=== PATIENT | female | born 1960 ===

== ENCOUNTER 2018-02-23 13:17 | Observation (INO) | payer OTHER ==
[2018-02-23 13:17] VITALS: BMI 40.0
--- NOTE | 2018-02-23 14:36 | ED PDOC ---
HPI: Chest Pain Time Seen by Provider: 02/23/18 14:32 Chief Complaint (Nursing): Chest Pain Chief Complaint (Provider): CP History Per: Patient (57 Y/O FEMALE H/O CARDIAC STENT 08/2013 HERE WITH CHEST HEAVINESS NOTED WITH WALKING ON [address] AT 11:30PM. DENIES ANY COUGH/ FEVER/CHILL. HAS HAD STRESS TEST 07/2017 UNSURE OF RESULTS) Past Medical History Reviewed: Historical Data, Nursing Documentation, Vital Signs Vital Signs: Last Vital Signs Temp 98.4 F 02/23/18 13:33 Pulse 78 02/23/18 13:33 Resp 18 02/23/18 13:33 BP 137/64 02/23/18 13:33 Pulse Ox 99 02/23/18 17:02 - Medical History PMH: Diabetes, HTN, Hypercholesterolemia Denies: Chronic Kidney Disease - Surgical History Surgical History: CABG, Coronary Stent (2012), Endoscopy - Family History Family History: States: No Known Family Hx - Home Medications Home Medications: Ambulatory Orders Medication Instructions Recorded Carvedilol [Coreg] 6.25 mg PO BID 06/26/15 Isosorbide Dinitrate 60 mg PO DAILY 06/26/15 Vitamin B Complex [Optimum Vitamin 1 tab PO DAILY 06/26/15 B-Complex] Ezetimibe/Simvastatin [Vytorin 10 1 tab PO DAILY 04/12/16 mg-40 mg] Glimepiride [Amaryl] 4 mg PO BID 04/12/16 amLODIPine [Norvasc] 5 mg PO DAILY 04/12/16 Losartan [Cozaar] 100 mg PO DAILY 08/22/17 Metformin HCl [Fortamet] 1,000 mg PO DAILY 08/22/17 SITagliptin [Januvia] 50 mg PO DAILY 08/22/17 - Allergies Allergies/Adverse Reactions: Allergies Allergy/AdvReac Type Severity Reaction Status Date / Time aspirin Allergy ITCHING Verified 02/23/18 13:33 atorvastatin [From Lipitor] Allergy REDNESS Verified 02/23/18 13:33 fenofibrate Allergy PEELING Verified 02/23/18 13:33 SKIN FISH Allergy RASH Verified 02/23/18 13:33 latex Allergy RASH Verified 02/23/18 13:33 omega-3 acid ethyl esters Allergy REDNESS Verified 02/23/18 13:33 [From Lovaza] Penicillins Allergy RASH Verified 02/23/18 13:33 Sulfa (Sulfonamide Allergy RASH Verified 02/23/18 13:33 Antibiotics) sulindac [From Clinoril] Allergy RASH Verified 02/23/18 13:33 Thiazides Allergy RASH Verified 02/23/18 13:33 penicillin Allergy ITCHING Uncoded 07/20/17 09:47 Review of Systems ROS Statement: Except As Marked, All Systems Reviewed And Found Negative Cardiovascular: Positive for: Chest Pain Physical Exam - Reviewed Nursing Documentation Reviewed: Yes Vital Signs Reviewed: Yes - Physical Exam Appears: Positive for: Well, Non-toxic, No Acute Distress Head Exam: Positive for: ATRAUMATIC, NORMAL INSPECTION, NORMOCEPHALIC Skin: Positive for: Normal Color, Warm, DRY Eye Exam: Positive for: EOMI, Normal appearance, PERRL ENT: Positive for: Normal ENT Inspection Neck: Positive for: Normal, Painless ROM Cardiovascular/Chest: Positive for: Regular Rate, Rhythm Respiratory: Positive for: CNT, Normal Breath Sounds Gastrointestinal/Abdominal: Positive for: Normal Exam, Soft Back: Positive for: Normal Inspection Extremity: Positive for: Normal ROM Neurologic/Psych: Positive for: Alert, Oriented - Laboratory Results Result Diagrams: 02/23/18 14:47 02/23/18 14:47 - ECG ECG Rhythm: Positive for: Sinus Rhythm (NSR 82 BPM; NO ECTOPY; NO ACUTE CHANGES) O2 Sat by Pulse Oximetry: 99 - Progress ED Course And Treament: PATIENT IS ALLERGIC TO ASA (RASH) NITRO SLG X 1 DOSE FOR 3/10 CHEST HEAVINESS. PATIENT CHEST PAIN FREE UPON RE-EVALUATION D/W DR. LEO D/W DR. BOUCHER WHO RECOMMENDS TELE OBSERVATION 23HOURS Disposition - Clinical Impression Clinical Impression: Chest pain - Patient ED Disposition Is Patient to be Admitted: Yes - Disposition Disposition Time: 17:02 Condition: FAIR Forms: [facility] (Gambian) - Pt Status Changed To: Hospital Disposition Of: Observation
--- NOTE | 2018-02-23 14:43 | RAD ---
HISTORY: CP COMPARISON: Comparison made with chest radiograph 07/20/2017 FINDINGS: LUNGS: No active pulmonary disease. PLEURA: No significant pleural effusion identified, no pneumothorax apparent. CARDIOVASCULAR: Normal. OSSEOUS STRUCTURES: Mild multilevel degenerative spondylosis of the thoracic spine. VISUALIZED UPPER ABDOMEN: Normal. OTHER FINDINGS: None. IMPRESSION: No active disease.
[2018-02-23 14:58] LABS: BASO # 0.1 K/uL (0.0-0.2); BASO % 0.8 % (0.0-2.0); EOS # 0.2 K/uL (0.0-0.7); HEMOGLOBIN 12.9 g/dL (12.0-16.0); LYMPH # 1.7 K/uL (1.0-4.3); LYMPH % 13.7 % (20.0-40.0); MEAN CELL VOLUME 90.7 fl (81.0-99.0); MEAN CORPUSCULAR HEMOGLOBIN 30.6 pg (27.0-31.0); MEAN CORPUSCULAR HGB CONC 33.7 g/dL (33.0-37.0); MEAN PLATELET VOLUME 7.9 fl (7.2-11.7); MONO # 0.9 K/uL (0.0-0.8); MONO % 7.7 % (0.0-10.0); NEUT # 9.2 K/uL (1.8-7.0); NEUT % 75.8 % (50.0-75.0); RBC 4.21 Mil/uL (3.80-5.20)
[2018-02-23 15:01] LABS: WHITE BLOOD COUNT 12.1 K/uL (4.8-10.8)
[2018-02-23 15:16] LABS: CALCIUM 9.3 mg/dL (8.4-10.2); GFR AFRICAN-AMERICAN > 60; GFR NON-AFRICAN AMERICAN > 60
[2018-02-23 15:25] LABS: BLOOD UREA NITROGEN 15 mg/dl (7-17)
[2018-02-24] MEDS ORDERED: SIMVASTATIN PO SCH (09:00)
[2018-02-24] MEDS ORDERED: Metoprolol Succinate 25 mg XL Tab PO SCH (09:00)
[2018-02-24] MEDS ORDERED: Patient's Own Med (Sitagliptin Phos/Metformin Hcl [Janumet 50-1,000 Mg Tablet] 1 TAB) PO SCH (09:00)
[2018-02-24] MEDS ORDERED: EZETIMIBE PO SCH (09:00)
--- NOTE | 2018-02-24 13:50 | CP.PCM.CON ---
History of Present Illness - History of Present Illness History of Present Illness: Consultation for evaluation of chest pain hx of CAD HPI: 57 year old female who has been followed by me x 5 years , hx of CAD s/p PTCA/ NEGRO of LCx in 2012 admitted with c/o chest pain and pressure like sensation. Review of Systems - Review of Systems Systems not reviewed;Unavailable: Acuity of Condition - Constitutional Constitutional: As Per HPI - EENT Eyes: As Per HPI Ears: As Per HPI Nose/Mouth/Throat: As Per HPI - Breasts Breasts: As Per HPI - Cardiovascular Cardiovascular: As Per HPI - Respiratory Respiratory: As Per HPI - Gastrointestinal Gastrointestinal: As Per HPI - Genitourinary Genitourinary: As Per HPI - Reproductive: Female Reproductive:Female: As Per HPI - Menstruation Menstruation: As Per HPI - Musculoskeletal Musculoskeletal: As Per HPI - Integumentary Integumentary: As Per HPI - Neurological Neurological: As Per HPI - Psychiatric Psychiatric: As Per HPI - Endocrine Endocrine: As Per HPI - Hematologic/Lymphatic Hematologic: As Per HPI Past Patient History - Past Medical History & Family History Past Medical History?: Yes - Past Social History Smoking Status: Never Smoked - CARDIAC Hx Cardiac Disorders: Yes Hx Heart Attack: Yes Hx Hypercholesterolemia: Yes Hx Hypertension: Yes Other/Comment: Cardiac stent -2012 - PULMONARY Hx Respiratory Disorders: No - NEUROLOGICAL Hx Neurological Disorder: No - HEENT Hx HEENT Problems: No - RENAL Hx Chronic Kidney Disease: No - ENDOCRINE/METABOLIC Hx Endocrine Disorders: Yes Hx Diabetes Mellitus Type 2: Yes - HEMATOLOGICAL/ONCOLOGICAL Hx Blood Disorders: No - INTEGUMENTARY Hx Dermatological Problems: No - MUSCULOSKELETAL/RHEUMATOLOGICAL Hx Musculoskeletal Disorders: Yes Hx Falls: No Hx Herniated Disk: Yes - GASTROINTESTINAL Hx Gastrointestinal Disorders: Yes Other/Comment: hiatal hernia - GENITOURINARY/GYNECOLOGICAL Hx Genitourinary Disorders: No - PSYCHIATRIC Hx Psychophysiologic Disorder: No Hx Substance Use: No - SURGICAL HISTORY Hx Surgeries: Yes Hx Coronary Stent: Yes (2012) Other/Comment: Endoscopy - ANESTHESIA Hx Anesthesia: Yes Hx Anesthesia Reactions: No Hx Malignant Hyperthermia: No Meds Allergies/Adverse Reactions: Allergies Allergy/AdvReac Type Severity Reaction Status Date / Time aspirin Allergy ITCHING Verified 02/23/18 13:33 atorvastatin [From Lipitor] Allergy REDNESS Verified 02/23/18 13:33 fenofibrate Allergy PEELING Verified 02/23/18 13:33 SKIN FISH Allergy RASH Verified 02/23/18 13:33 latex Allergy RASH Verified 02/23/18 13:33 omega-3 acid ethyl esters Allergy REDNESS Verified 02/23/18 13:33 [From Lovaza] Penicillins Allergy RASH Verified 02/23/18 13:33 Sulfa (Sulfonamide Allergy RASH Verified 02/23/18 13:33 Antibiotics) sulindac [From Clinoril] Allergy RASH Verified 02/23/18 13:33 Thiazides Allergy RASH Verified 02/23/18 13:33 penicillin Allergy ITCHING Uncoded 07/20/17 09:47 - Medications Medications: Current Medications Amlodipine Besylate (Norvasc) 5 mg PO DAILY [facility] Last Admin: 02/24/18 09:02 Dose: 5 mg Carvedilol (Coreg) 6.25 mg PO BID [facility] Last Admin: 02/24/18 09:01 Dose: 6.25 mg Clopidogrel Bisulfate (Plavix) 75 mg PO DAILY [facility] Last Admin: 02/24/18 09:02 Dose: 75 mg Home Med (Ezetimibe/Simvastatin [Vytorin 10-40 Mg Tablet]) 1 tab PO DAILY [facility] Isosorbide Mononitrate (Imdur) 60 mg PO DAILY [facility] Last Admin: 02/24/18 09:01 Dose: 60 mg Losartan Potassium (Cozaar) 100 mg PO DAILY [facility] Metformin HCl (Glucophage) 1,000 mg PO BID [facility] Last Admin: 02/24/18 09:02 Dose: 1,000 mg Metoprolol Succinate (Toprol Xl) 25 mg PO DAILY [facility] Last Admin: 02/24/18 09:05 Dose: Not Given Sitagliptin Phosphate (Januvia) 50 mg PO BID [facility] Last Admin: 02/24/18 09:02 Dose: 50 mg Physical Exam - Constitutional Appears: Well - Head Exam Head Exam: ATRAUMATIC, NORMAL INSPECTION, NORMOCEPHALIC - Eye Exam Eye Exam: EOMI, Normal appearance, PERRL Pupil Exam: NORMAL ACCOMODATION, PERRL - ENT Exam ENT Exam: Mucous Membranes Moist, Normal Exam - Neck Exam Neck exam: Positive for: Normal Inspection - Respiratory Exam Respiratory Exam: Clear to Auscultation Bilateral, NORMAL BREATHING PATTERN - Cardiovascular Exam Cardiovascular Exam: REGULAR RHYTHM, RRR, +S1, +S2, Systolic Murmur - GI/Abdominal Exam GI & Abdominal Exam: Normal Bowel Sounds, Soft. absent: Tenderness - Extremities Exam Extremities exam: Positive for: normal inspection - Back Exam Back exam: NORMAL INSPECTION - Neurological Exam Neurological exam: Alert, CN II-XII Intact, Normal Gait, Oriented x3, Reflexes Normal - Psychiatric Exam Psychiatric exam: Normal Affect, Normal Mood - Skin Skin Exam: Dry, Intact, Normal Color, Warm Results - Vital Signs Recent Vital Signs: Last Vital Signs Temp 98.5 F 02/24/18 12:00 Pulse 75 02/24/18 12:00 Resp 20 02/24/18 12:00 BP 125/75 02/24/18 12:00 Pulse Ox 97 02/24/18 12:00 - Labs Result Diagrams: 02/23/18 14:47 02/23/18 14:47 Labs: Laboratory Results - last 24 hr 02/23/18 02/23/18 02/23/18 14:47 14:47 21:14 WBC 12.1 H D RBC 4.21 Hgb 12.9 Hct 38.2 MCV 90.7 MCH 30.6 MCHC 33.7 RDW 13.0 Plt Count 230 MPV 7.9 Neut % (Auto) 75.8 H Lymph % (Auto) 13.7 L [place] % (Auto) 7.7 Eos % (Auto) 2.0 Baso % (Auto) 0.8 Neut # (Auto) 9.2 H Lymph # (Auto) 1.7 [place] # (Auto) 0.9 H Eos # (Auto) 0.2 Baso # (Auto) 0.1 Sodium 137 Potassium 4.1 Chloride 100 Carbon Dioxide 26 Anion Gap 15 BUN 15 Creatinine 0.6 L Est GFR ( Amer) > 60 Est GFR (Non-Af Amer) > 60 POC Glucose (mg/dL) Random Glucose 189 H Calcium 9.3 Magnesium 2.0 Troponin I < 0.0120 < 0.0120 02/23/18 02/24/18 02/24/18 21:39 05:07 06:00 WBC RBC Hgb Hct MCV MCH MCHC RDW Plt Count MPV Neut % (Auto) Lymph % (Auto) [place] % (Auto) Eos % (Auto) Baso % (Auto) Neut # (Auto) Lymph # (Auto) [place] # (Auto) Eos # (Auto) Baso # (Auto) Sodium Potassium Chloride Carbon Dioxide Anion Gap BUN Creatinine Est GFR ( Amer) Est GFR (Non-Af Amer) POC Glucose (mg/dL) 84 81 Random Glucose Calcium Magnesium Troponin I < 0.0120 02/24/18 11:51 WBC RBC Hgb Hct MCV MCH MCHC RDW Plt Count MPV Neut % (Auto) Lymph % (Auto) [place] % (Auto) Eos % (Auto) Baso % (Auto) Neut # (Auto) Lymph # (Auto) [place] # (Auto) Eos # (Auto) Baso # (Auto) Sodium Potassium Chloride Carbon Dioxide Anion Gap BUN Creatinine Est GFR ( Amer) Est GFR (Non-Af Amer) POC Glucose (mg/dL) 119 H Random Glucose Calcium Magnesium Troponin I Assessment & Plan (1) Unstable angina Assessment and Plan: plan for stress test on monday Status: Acute (2) CAD (coronary artery disease) Status: Acute (3) S/P PTCA (percutaneous transluminal coronary angioplasty) Status: Acute (4) HTN (hypertension) Status: Acute (5) Dyslipidemia Status: Acute (6) Chest pain Status: Acute
[2018-02-24 16:18] VITALS: BP 126/73; PULSE 68; RESP 17; TEMP 98.3; O2SAT 99
--- NOTE | 2018-02-24 16:38 | CP.PCM.HP ---
History of Present Illness - History of Present Illness History of Present Illness: This is a 57 y/o female admitted for chest pain. Past Patient History - Past Medical History & Family History Past Medical History?: Yes - Past Social History Smoking Status: Never Smoked - CARDIAC Hx Cardiac Disorders: Yes Hx Heart Attack: Yes Hx Hypercholesterolemia: Yes Hx Hypertension: Yes Other/Comment: Cardiac stent -2012 - PULMONARY Hx Respiratory Disorders: No - NEUROLOGICAL Hx Neurological Disorder: No - HEENT Hx HEENT Problems: No - RENAL Hx Chronic Kidney Disease: No - ENDOCRINE/METABOLIC Hx Endocrine Disorders: Yes Hx Diabetes Mellitus Type 2: Yes - HEMATOLOGICAL/ONCOLOGICAL Hx Blood Disorders: No - INTEGUMENTARY Hx Dermatological Problems: No - MUSCULOSKELETAL/RHEUMATOLOGICAL Hx Musculoskeletal Disorders: Yes Hx Falls: No Hx Herniated Disk: Yes - GASTROINTESTINAL Hx Gastrointestinal Disorders: Yes Other/Comment: hiatal hernia - GENITOURINARY/GYNECOLOGICAL Hx Genitourinary Disorders: No - PSYCHIATRIC Hx Psychophysiologic Disorder: No Hx Substance Use: No - SURGICAL HISTORY Hx Surgeries: Yes Hx Coronary Stent: Yes (2012) Other/Comment: Endoscopy - ANESTHESIA Hx Anesthesia: Yes Hx Anesthesia Reactions: No Hx Malignant Hyperthermia: No Meds Allergies/Adverse Reactions: Allergies Allergy/AdvReac Type Severity Reaction Status Date / Time aspirin Allergy ITCHING Verified 02/23/18 13:33 atorvastatin [From Lipitor] Allergy REDNESS Verified 02/23/18 13:33 fenofibrate Allergy PEELING Verified 02/23/18 13:33 SKIN FISH Allergy RASH Verified 02/23/18 13:33 latex Allergy RASH Verified 02/23/18 13:33 omega-3 acid ethyl esters Allergy REDNESS Verified 02/23/18 13:33 [From Lovaza] Penicillins Allergy RASH Verified 02/23/18 13:33 Sulfa (Sulfonamide Allergy RASH Verified 02/23/18 13:33 Antibiotics) sulindac [From Clinoril] Allergy RASH Verified 02/23/18 13:33 Thiazides Allergy RASH Verified 02/23/18 13:33 penicillin Allergy ITCHING Uncoded 07/20/17 09:47 Results - Vital Signs Recent Vital Signs: Last Vital Signs Temp 98.3 F 02/24/18 16:17 Pulse 68 02/24/18 16:17 Resp 17 02/24/18 16:17 BP 126/73 02/24/18 16:17 Pulse Ox 99 02/24/18 16:17 - Labs Result Diagrams: 02/23/18 14:47 02/23/18 14:47 Labs: Laboratory Results - last 24 hr 02/23/18 02/23/18 02/24/18 21:14 21:39 05:07 POC Glucose (mg/dL) 84 81 Troponin I < 0.0120 02/24/18 02/24/18 06:00 11:51 POC Glucose (mg/dL) 119 H Troponin I < 0.0120
== END 2018-02-24 17:10 | disposition home or self-care (01) ==
LOC: H.ER 13:17 → H.ERHOLD 17:01 → H.TEL 21:30
PROVIDERS: ADMIT Family Medicine; ATTEND Family Medicine
DX: I25.110 Atherosclerotic heart disease of native coronary artery with unstable angina pectoris (principal); E11.9 Type 2 diabetes mellitus without complications; E78.00 Pure hypercholesterolemia, unspecified; E78.5 Hyperlipidemia, unspecified; I10 Essential (primary) hypertension; I25.2 Old myocardial infarction; K44.9 Diaphragmatic hernia without obstruction or gangrene; Z95.1 Presence of aortocoronary bypass graft; Z95.5 Presence of coronary angioplasty implant and graft; Z79.84 Long term (current) use of oral hypoglycemic drugs; Z79.899 Other long term (current) drug therapy; R07.9 Chest pain, unspecified; Z88.6 Allergy status to analgesic agent; Z88.0 Allergy status to penicillin; Z91.013 Allergy to seafood
CPT/HCPCS: 36415; 71045; 80048; 82948; 83735; 84484; 85025; 99285; G0378

== ENCOUNTER 2018-04-03 10:13 | Observation (INO) | payer OTHER ==
[2018-04-03 10:26] VITALS: BMI 40.2
--- NOTE | 2018-04-03 11:23 | ED PDOC ---
Syncope/Near Syncope/Dizziness Time Seen by Provider: 04/03/18 10:33 Chief Complaint (Nursing): Syncope Chief Complaint (Provider): Syncope History Per: Patient History/Exam Limitations: no limitations Onset/Duration Of Symptoms: Hrs Current Symptoms Are (Timing): Better Number Of Syncopal Episodes: 1 Activity At Onset Of Symptoms: Walking Associated Symptoms Preceding Syncopal Episode: No Predromal Symptoms (Sudden Onset) Seizure Or Post-ictal Symptoms: None Additional Complaint(s): 57 year old female presents to the ED for an evaluation as per her boss. Patient states she recalls security picking her up from the ground as she was leaving work and passed out. She felt weak and pain on her right upper lip afterwards. Patient felt better in the car and drove home. States on March 31, she felt a general intermittent chest discomfort when walking and on April 01, she felt a sharp left chest pain for a few seconds. During work, she felt no chest pain, shortness of breath or change in her sugar. She is also complaining of left knee pain. PMD: Asif Esquivel Past Medical History Reviewed: Historical Data, Nursing Documentation, Vital Signs Vital Signs: Last Vital Signs Temp 97.8 F 04/03/18 10:27 Pulse 61 04/03/18 10:27 Resp 17 04/03/18 10:27 BP 130/61 04/03/18 10:27 Pulse Ox 97 04/03/18 10:27 - Medical History PMH: Diabetes, HTN, Hypercholesterolemia Denies: Chronic Kidney Disease - Surgical History Surgical History: CABG, Coronary Stent (2012), Endoscopy Other surgeries: catheterization on March 20 - Family History Family History: States: Unknown Family Hx - Home Medications Home Medications: Ambulatory Orders Medication Instructions Recorded Carvedilol [Coreg] 6.25 mg PO BID 06/26/15 Ezetimibe/Simvastatin [Vytorin 1 tab PO HS 04/12/16 10-40 mg Tablet] Losartan [Cozaar] 100 mg PO DAILY 08/22/17 Sitagliptin Phos/Metformin HCl 1 tab PO BID 02/23/18 [Janumet 50-1,000 mg Tablet] Clopidogrel [Plavix] 75 mg PO DAILY tab 02/24/18 Isosorbide Mononitrate [Imdur] 60 mg PO DAILY tab 02/24/18 Glimepiride [amaRYL] 4 mg PO BID 04/03/18 Omeprazole [Omeprazole] 40 mg PO DAILY 04/03/18 - Allergies Allergies/Adverse Reactions: Allergies Allergy/AdvReac Type Severity Reaction Status Date / Time aspirin Allergy ITCHING Verified 02/23/18 13:33 atorvastatin [From Lipitor] Allergy REDNESS Verified 02/23/18 13:33 fenofibrate Allergy PEELING Verified 02/23/18 13:33 SKIN FISH Allergy RASH Verified 02/23/18 13:33 latex Allergy RASH Verified 02/23/18 13:33 omega-3 acid ethyl esters Allergy REDNESS Verified 02/23/18 13:33 [From Lovaza] Penicillins Allergy RASH Verified 02/23/18 13:33 Sulfa (Sulfonamide Allergy RASH Verified 02/23/18 13:33 Antibiotics) sulindac [From Clinoril] Allergy RASH Verified 02/23/18 13:33 Thiazides Allergy RASH Verified 02/23/18 13:33 penicillin Allergy ITCHING Uncoded 07/20/17 09:47 Review of Systems ROS Statement: Except As Marked, All Systems Reviewed And Found Negative Physical Exam - Reviewed Nursing Documentation Reviewed: Yes Vital Signs Reviewed: Yes - Physical Exam Appears: Positive for: Well, Non-toxic, No Acute Distress Head Exam: Positive for: ATRAUMATIC, NORMAL INSPECTION, NORMOCEPHALIC Skin: Positive for: Normal Color, Warm, DRY Eye Exam: Positive for: Normal appearance ENT: Positive for: Normal ENT Inspection Neck: Positive for: Normal, Painless ROM Cardiovascular/Chest: Positive for: Regular Rate, Rhythm Respiratory: Positive for: CNT, Normal Breath Sounds Gastrointestinal/Abdominal: Positive for: Normal Exam, Soft. Negative for: Tenderness Back: Positive for: Normal Inspection Extremity: Positive for: Normal ROM Neurologic/Psych: Positive for: Alert, Oriented, Gait - Laboratory Results Result Diagrams: 04/03/18 11:30 04/03/18 11:30 - ECG O2 Sat by Pulse Oximetry: 97 (RA) Pulse Ox Interpretation: Normal Medical Decision Making Medical Decision Making: Time: 1109 Initial Plan: --EKG --BMP --CMP --Troponin I --CBC W/ Differential --PTT --Prothrombin Time --Chest Two Views (PA/LAT) [RAD] --Knee 3 Views LT [RAD] --Glucose, Blood, POC --Green Pipefitter --IV Insertion --Knee Right 2 Views (AP&LAT) [RAD] Knee XR with osteoarthritis. Abnormal CT - MRI ordered Discussed with Dr. Young. Would like Dr. Garcia on consult Scribe Attestation: Documented by Dannie Abraham, acting as a scribe for Corrina Garcia PA-C. Provider Scribe Attestation: All medical record entries made by the Scribe were at my direction and personally dictated by me. I have reviewed the chart and agree that the record accurately reflects my personal performance of the history, physical exam, medical decision making, and the department course for this patient. I have also personally directed, reviewed, and agree with the discharge instructions and disposition. Disposition - Clinical Impression Clinical Impression: Syncope - Patient ED Disposition Is Patient to be Admitted: Yes - Disposition Disposition Time: 16:34 Condition: STABLE Instructions: Syncope (Fainting) Forms: [employer] ([place])
[2018-04-03 11:42] LABS: BASO # 0.1 K/uL (0.0-0.2); BASO % 1.3 % (0.0-2.0); EOS # 0.3 K/uL (0.0-0.7); EOS % 3.3 % (0.0-4.0); HEMOGLOBIN 12.9 g/dL (12.0-16.0); LYMPH # 1.8 K/uL (1.0-4.3); LYMPH % 20.1 % (20.0-40.0); MEAN CELL VOLUME 90.4 fl (81.0-99.0); MEAN CORPUSCULAR HEMOGLOBIN 30.8 pg (27.0-31.0); MEAN CORPUSCULAR HGB CONC 34.1 g/dL (33.0-37.0); MEAN PLATELET VOLUME 8.3 fl (7.2-11.7); MONO # 0.7 K/uL (0.0-0.8); MONO % 7.9 % (0.0-10.0); NEUT # 6.2 K/uL (1.8-7.0); NEUT % 67.4 % (50.0-75.0); NRBC % 0.1 % (0.0-0.0); RBC 4.17 Mil/uL (3.80-5.20); RED CELL DISTRIBUTION WIDTH 12.8 % (11.5-14.5); WHITE BLOOD COUNT 9.1 K/uL (4.8-10.8)
[2018-04-03 11:52] LABS: ALB/GLOB RATIO 1.5 (1.0-2.1); ALBUMIN 4.3 g/dL (3.5-5.0); ALT/SGPT 24 U/L (9-52); AST/SGOT 26 U/L (14-36); BLOOD UREA NITROGEN 19 mg/dl (7-17); CALCIUM 9.5 mg/dL (8.4-10.2); GFR AFRICAN-AMERICAN > 60; GFR NON-AFRICAN AMERICAN > 60
[2018-04-03 12:02] LABS: INR 0.9 (0.9-1.2); PARTIAL THROMBOPLASTIN TIME 43.2 Seconds (25.6-37.1); PROTHROMBIN TIME 10.4 Seconds (9.8-13.1)
--- NOTE | 2018-04-03 12:04 | RAD ---
Date of service: 04/03/2018 PROCEDURE: Left Knee Radiographs. HISTORY: Pain. COMPARISON: None. FINDINGS: BONES: Technically limited. No acute fracture. JOINTS: Mild tricompartmental osteoarthritis most prominently involving the medial compartment. No articular erosions. JOINT EFFUSION: None. OTHER FINDINGS: None. IMPRESSION: Mild tricompartmental osteoarthritis.
--- NOTE | 2018-04-03 12:05 | RAD ---
Date of service: 04/03/2018 PROCEDURE: Right Knee Radiographs. HISTORY: fall, pain COMPARISON: None. FINDINGS: BONES: Technically limited. No acute fracture. JOINTS: Mild tricompartmental osteoarthritis most prominently involving the medial joint compartment. No articular erosions. JOINT EFFUSION: None. OTHER FINDINGS: None. IMPRESSION: Mild tricompartmental osteoarthritis. No acute fracture.
--- NOTE | 2018-04-03 12:05 | RAD ---
Date of service: 04/03/2018 HISTORY: syncope COMPARISON: 02/23/2018 TECHNIQUE: Chest PA and lateral FINDINGS: LUNGS: No active pulmonary disease. PLEURA: No significant pleural effusion identified. No pneumothorax apparent. CARDIOVASCULAR: Normal. OSSEOUS STRUCTURES: No significant abnormalities. VISUALIZED UPPER ABDOMEN: Normal. OTHER FINDINGS: None. IMPRESSION: No active disease.
--- NOTE | 2018-04-03 15:16 | CARD ---
APPROVED REPORT Date of service: 04/03/2018 EKG Measurement Heart [id number] OR 164P-4 [id number] <Conclusion> Normal sinus rhythm Minimal voltage criteria for LVH, may be normal variant Borderline ECG
--- NOTE | 2018-04-03 16:39 | CT ---
Date of service: 04/03/2018 PROCEDURE: CT HEAD WITHOUT CONTRAST. HISTORY: synccope COMPARISON: None available. TECHNIQUE: Axial computed tomography images were obtained through the head/brain without intravenous contrast. Radiation dose: Total exam DLP = 818 mGy-cm. This CT exam was performed using one or more of the following dose reduction techniques: Automated exposure control, adjustment of the mA and/or kV according to patient size, and/or use of iterative reconstruction technique. FINDINGS: HEMORRHAGE: No intracranial hemorrhage. BRAIN: No mass effect or edema. No marked history atrophy. There are multiple rounded hypodensities in the right for tentorial cerebral white matter ring the cortical medullary junctions (axis series 4, image 37. No gross asymmetry in the appearance of the sulci at this level are seen. There are probably much lesser an similar findings few were and less conspicuous left supratentorial cerebrum as well Chronicity of this appearance is unknown. Microvascular ischemic changes are 1 consideration appear. VENTRICLES: Unremarkable. No hydrocephalus. CALVARIUM: Unremarkable. PARANASAL SINUSES: Unremarkable as visualized. No significant inflammatory changes. MASTOID AIR CELLS: Unremarkable as visualized. No inflammatory changes. OTHER FINDINGS: Punctate left basal ganglia calcification noted IMPRESSION: No intracranial hemorrhage or mass effect. Hypodensities supratentorial cerebrum as detailed above right greater than left. The chronicity is unknown. Consider MRI of brain follow-up for further evaluation
[2018-04-03] MEDS ORDERED: SIMVASTATIN PO SCH (22:00)
[2018-04-03] MEDS ORDERED: EZETIMIBE PO SCH (22:00)
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
[2018-04-04] MEDS ORDERED: Patient's Own Med (Sitagliptin Phos/Metformin Hcl [Janumet 50-1,000 Mg Tablet] 1 TAB) PO SCH (09:00)
[2018-04-04] MEDS: GlipiZIDE 10 mg SR Tab PO SCH ×2 (09:43→09:48)
[2018-04-04] MEDS: Pantoprazole 40 mg EC Tab PO SCH (09:43)
--- NOTE | 2018-04-04 12:03 | US ---
Date of service: 04/04/2018 PROCEDURE: Duplex ultrasound of the carotid and vertebral arteries. HISTORY: syncope COMPARISON: None available. TECHNIQUE: Grayscale and duplex Doppler evaluation of the cervical carotid and vertebral arteries were performed. The common carotid, carotid bifurcations and cervical ICA and proximal ECA were evaluated. The vertebral arteries were evaluated for gross patency and direction. FINDINGS: RIGHT CAROTID ARTERIES: Common Carotid Artery: Normal. Maximal flow velocity of 80.1 cm/s. Carotid Bifurcation: Normal. Internal Carotid Artery:Heterogeneous plaque formation. Tortuous right ICA. Maximal flow velocity of 81.0 cm/s. External Carotid Artery (proximal branches): Normal. Maximal flow velocity of 49.3 cm/s. ICA/CCA Ratio: 1.2 LEFT CAROTID ARTERIES: Common Carotid Artery: Intimal thickening is present Maximal flow velocity of 75.2 cm/s. Carotid Bifurcation: Normal. Internal Carotid Artery:Heterogeneous plaque formation. Tortuous left IC Maximal flow velocity of 85.5 cm/s. External Carotid Artery (proximal branches): Normal. Maximal flow velocity of 68.3 cm/s. ICA/CCA Ratio: 1.1 VERTEBRAL ARTERIES: Right Vertebral Artery: Patent. Antegrade flow. Left Vertebral Artery: Patent. Antegrade flow. OTHER FINDINGS: None. IMPRESSION: Right ICA degree of stenosis: Less than 50% Left ICA degree of stenosis: Less than 50% Reference Internal Carotid Artery (ICA) Peak Systolic Velocity (PSV) for above: 1. Less than 50% stenosis less than 125 cm/s peak systolic velocity 2. 50-69% stenosis 125-230cm/s peak systolic velocity 3. Greater than 70% but less than near occlusion greater than 230 cm/s peak systolic velocity
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
[2018-04-05] MEDS: Pantoprazole 40 mg EC Tab PO SCH (08:49)
--- NOTE | 2018-04-05 09:42 | CARD ---
APPROVED REPORT Date of service: 04/04/2018 EXAM: Two-dimensional and M-mode echocardiogram with Doppler and color Doppler. Other Information Quality : GoodRhythm : NSR INDICATION Syncope 2D DIMENSIONS IVSd1.21 (0.7-1.1cm)LVDd4.51 (3.9-5.9cm) LVOT Diameter1.96 (1.8-2.4cm)PWd0.99 (0.7-1.1cm) IVSs1.48 (0.8-1.2cm)LVDs3.22 (2.5-4.0cm) FS (%) 28.5 %PWs1.44 (0.8-1.2cm) M-Mode DIMENSIONS Left Atrium (MM)4.27 (2.5-4.0cm)IVSd0.60 (0.7-1.1cm) Aortic Root3.41 (2.2-3.7cm)LVDd6.62 (4.0-5.6cm) Aortic Cusp Exc.1.82 (1.5-2.0cm)PWd0.79 (0.7-1.1cm) IVSs1.26 cmFS (%) 34 % LVDs4.37 (2.0-3.8cm)PWs1.19 cm Aortic Valve AoV Peak Ttzbwiqp027.3cm/sAoV VTI28.9cmAO Peak GR.5mmHg LVOT Peak Hictijxg66.0cm/sLVOT VTI20.63cmAO Mean GR.3mmHg J CARLOS (VMAX)1.73rm7FOI (VTI)1.14cm2 Mitral Valve MV E Kzgmiddk39.1cm/sMV DECEL [id number] A Ddmqhjyz14.6cm/s MV UBU38clG/A ratio1.4MVA (PHT)4.36cm2 TDI Lateral E' Peak V10.10cm/sMedial E' Peak V7.66cm/sE/Lateral E'8.1 E/Medial E'10.7 Pulmonary Valve PV Peak Yjhlepns53.5cm/s LEFT VENTRICLE The left ventricle is normal size. There is mild concentric left ventricular hypertrophy. The left ventricular function is normal. The left ventricular ejection fraction is within the normal range. LVEF 65% There is normal LV segmental wall motion. The left ventricular diastolic function is normal. No left ventricle thrombus noted on this study. There is no ventricular septal defect visualized. There is no left ventricular aneurysm. RIGHT VENTRICLE The right ventricle is normal size. There is normal right ventricular wall thickness. The right ventricular systolic function is normal. ATRIA The left atrium size is normal. The right atrium size is normal. The interatrial septum is intact with no evidence for an atrial septal defect. AORTIC VALVE The aortic valve is normal in structure. No aortic regurgitation is present. There is no aortic valvular stenosis. There is no aortic valvular vegetation. MITRAL VALVE The mitral valve is normal in structure. There is no evidence of mitral valve prolapse. There is no mitral valve stenosis. There is no mitral valve regurgitation noted. TRICUSPID VALVE The tricuspid valve is normal in structure. There is no tricuspid valve regurgitation noted. There is no tricuspid valve prolapse or vegetation. There is no tricuspid valve stenosis. PULMONIC VALVE The pulmonary valve is normal in structure. There is no pulmonic valvular regurgitation. There is no pulmonic valvular stenosis. GREAT VESSELS The aortic root is normal in size. The IVC is normal in size and collapses >50% with inspiration. PERICARDIAL EFFUSION The pericardium appears normal. There is no pleural effusion. <Conclusion> The left ventricle is normal size. There is mild concentric left ventricular hypertrophy. The left ventricular function is normal. The left ventricular ejection fraction is within the normal range. LVEF 65%
--- NOTE | 2018-04-05 10:32 | CP.PCM.PN ---
Subjective - Date & Time of Evaluation Date of Evaluation: 04/05/18 Time of Evaluation: 10:30 - Subjective Subjective: Ms. Campbell was seen and examined at the bedside. She is alert, oriented in all spheres. She denies any headache, dizziness, and requesting to be discharge today. She is able to ambulate within her room in steady gait and can perform her own ADL's. There was no untoward events overnight. Objective - Vital Signs/Intake and Output Vital Signs (last 24 hours): Temp Pulse Resp BP Pulse Ox 98.3 F 62 18 174/76 H 97 04/05/18 08:00 04/05/18 08:48 04/05/18 08:00 04/05/18 08:48 04/05/18 08:00 - Medications Medications: Current Medications Acetaminophen (Tylenol 325mg Tab) 325 mg PO Q6 PRN PRN Reason: Pain, moderate (4-7) Amlodipine Besylate (Norvasc) 5 mg PO DAILY [facility] Carvedilol (Coreg) 6.25 mg PO BID [facility] Last Admin: 04/05/18 08:48 Dose: 6.25 mg Clopidogrel Bisulfate (Plavix) 75 mg PO DAILY [facility] Last Admin: 04/05/18 08:49 Dose: 75 mg Home Med (Ezetimibe/Simvastatin [Vytorin 10-40 Mg Tablet]) 1 tab PO [facility] Isosorbide Mononitrate (Imdur) 60 mg PO DAILY [facility] Last Admin: 04/05/18 08:49 Dose: 60 mg Losartan Potassium (Cozaar) 100 mg PO DAILY@1700 [facility] Last Admin: 04/04/18 17:14 Dose: 100 mg Metformin HCl (Glucophage) 1,000 mg PO BID [facility] Last Admin: 04/05/18 08:48 Dose: 1,000 mg Pantoprazole Sodium (Protonix Ec Tab) 40 mg PO DAILY [facility] Last Admin: 04/05/18 08:49 Dose: 40 mg Sitagliptin Phosphate (Januvia) 100 mg PO DAILY [facility] Last Admin: 04/05/18 08:49 Dose: 100 mg - Labs Labs: 04/03/18 11:30 04/03/18 11:30 PT 10.4 Seconds (9.8-13.1) 04/03/18 11:30 INR 0.9 (0.9-1.2) 04/03/18 11:30 APTT 43.2 Seconds (25.6-37.1) H 04/03/18 11:30 - Constitutional Appears: No Acute Distress - Head Exam Head Exam: NORMAL INSPECTION - Eye Exam Pupil Exam: PERRL - Neurological Exam Neurological Exam: Alert, Awake, Oriented x3 Neuro motor strength exam: Left Upper Extremity: 5, Right Upper Extremity: 5, Left Lower Extremity: 5, Right Lower Extremity: 5 Additional comments: alert, oriented in all spheres, sensation is intact. Assessment and Plan (1) Syncope Assessment & Plan: Case discussed with Dr. Clark, continue all current medical and physical regimen. Pending CTA of the head and neck to evaluate of the posterior circulation. MRI of the brain without contrast can be done as an outpatient with the open MRI. Recommend hydration, blood pressure, any follow any cardiac work up per geological e logger. Status: Acute
[2018-04-05] MEDS ORDERED: Iodixanol 320 MG/ML 100 ML BOTTLE IV ONE (11:57)
[2018-04-05] MEDS ORDERED: Sodium Chloride 0.9% 50 ML IV ONE (11:57)
[2018-04-05 12:51] VITALS: O2SAT 99
--- NOTE | 2018-04-05 13:32 | CT ---
Date of service: 04/05/2018 PROCEDURE: CT Angiography of the Brain and Neck. HISTORY: syncope COMPARISON: None available. TECHNIQUE: CT angiography of the intracranial and neck arteries was performed. Coronal and sagittal maximum intensity projection reformatted images were generated. Contrast Dose: Visipaque 320, 99 cc Radiation dose:Total exam DLP = 414.47 mGy-cm. This CT exam was performed using one or more of the following dose reduction techniques: Automated exposure control, adjustment of the mA and/or kV according to patient size, and/or use of iterative reconstruction technique. FINDINGS: INTERNAL CEREBRAL ARTERIES: Unremarkable. The skull base, petrous, cavernous and supraclinoid segments are bilaterally widely patent. ANTERIOR CEREBRAL ARTERIES: Unremarkable. A1 and A2 segments are widely patent. Smaller distal branches unremarkable, as visualized. MIDDLE CEREBRAL ARTERIES: Unremarkable. M1 and M2 segments are widely patent. Perisylvian branches grossly symmetric. POSTERIOR CIRCULATION: Basilar Artery: Unremarkable. Distal Vertebral Arteries: Unremarkable. Posterior Cerebral Arteries: Unremarkable. Posterior Inferior Cerebellar Arteries: Unremarkable. NECK CTA: Common Carotid arteries: The bilateral common carotid appear widely patent from their origins to their bifurcations with no significant stenosis appreciated. No evidence to suggest common carotid artery dissection. Internal Carotid arteries: No significant stenosis is appreciated throughout the cervical internal carotid artery segments bilaterally and there is no evidence of dissection either. External Carotid arteries: Appear unremarkable bilaterally. Vertebral arteries: The bilateral vertebral arteries appear normal in caliber from their origins to their junction with the basilar artery. No significant stenosis or definite pattern of dissection. ANEURYSM/ VASCULAR MALFORMATIONS: None. OTHER FINDINGS: Multiple bilateral thyroid lobe lucencies with the largest measuring 1.7 cm at right lobe and 2.0 cm at the left. Follow-up thyroid ultrasound is recommended unless already evaluated. IMPRESSION: Unremarkable CT Angiography of the Brain and Neck. Incidental bilateral thyroid lobe lucencies for which follow-up thyroid ultrasound recommended for greater characterization on an elective basis.
[2018-04-05 16:07] VITALS: BP 129/74; RESP 16; TEMP 98.1
[2018-04-05 16:23] VITALS: PULSE 60
--- NOTE | 2018-04-05 18:06 | CP.PCM.PN ---
Subjective - Date & Time of Evaluation Date of Evaluation: 04/05/18 Time of Evaluation: 18:04 - Subjective Subjective: stable no more dizziness Objective - Vital Signs/Intake and Output Vital Signs (last 24 hours): Temp Pulse Resp BP Pulse Ox 98.1 F 60 16 129/74 99 04/05/18 16:06 04/05/18 16:22 04/05/18 16:06 04/05/18 16:22 04/05/18 16:06 - Medications Medications: Current Medications Acetaminophen (Tylenol 325mg Tab) 325 mg PO Q6 PRN PRN Reason: Pain, moderate (4-7) Amlodipine Besylate (Norvasc) 5 mg PO DAILY [facility] Last Admin: 04/05/18 12:57 Dose: 5 mg Carvedilol (Coreg) 6.25 mg PO BID [facility] Last Admin: 04/05/18 16:22 Dose: 6.25 mg Clopidogrel Bisulfate (Plavix) 75 mg PO DAILY [facility] Last Admin: 04/05/18 08:49 Dose: 75 mg Home Med (Ezetimibe/Simvastatin [Vytorin 10-40 Mg Tablet]) 1 tab PO [facility] Isosorbide Mononitrate (Imdur) 60 mg PO DAILY [facility] Last Admin: 04/05/18 08:49 Dose: 60 mg Losartan Potassium (Cozaar) 100 mg PO DAILY@1700 [facility] Last Admin: 04/04/18 17:14 Dose: 100 mg Metformin HCl (Glucophage) 1,000 mg PO BID [facility] Last Admin: 04/05/18 16:22 Dose: 1,000 mg Pantoprazole Sodium (Protonix Ec Tab) 40 mg PO DAILY [facility] Last Admin: 04/05/18 08:49 Dose: 40 mg Sitagliptin Phosphate (Januvia) 100 mg PO DAILY [facility] Last Admin: 04/05/18 08:49 Dose: 100 mg - Labs Labs: 04/03/18 11:30 04/03/18 11:30 PT 10.4 Seconds (9.8-13.1) 04/03/18 11:30 INR 0.9 (0.9-1.2) 04/03/18 11:30 APTT 43.2 Seconds (25.6-37.1) H 04/03/18 11:30 - Constitutional Appears: Well - Head Exam Head Exam: ATRAUMATIC, NORMAL INSPECTION, NORMOCEPHALIC - Eye Exam Eye Exam: EOMI, Normal appearance, PERRL Pupil Exam: NORMAL ACCOMODATION, PERRL - ENT Exam ENT Exam: Mucous Membranes Moist, Normal Exam - Neck Exam Neck Exam: Full ROM, Normal Inspection. absent: Lymphadenopathy - Respiratory Exam Respiratory Exam: Clear to Ausculation Bilateral, NORMAL BREATHING PATTERN - Cardiovascular Exam Cardiovascular Exam: REGULAR RHYTHM, +S1, +S2. absent: Murmur - GI/Abdominal Exam GI & Abdominal Exam: Soft, Normal Bowel Sounds. absent: Tenderness - Extremities Exam Extremities Exam: Full ROM, Normal Capillary Refill, Normal Inspection. absent : Joint Swelling, Pedal Edema - Back Exam Back Exam: NORMAL INSPECTION - Neurological Exam Neurological Exam: Alert, Awake, CN II-XII Intact, Normal Gait, Oriented x3 - Psychiatric Exam Psychiatric exam: Normal Affect, Normal Mood - Skin Skin Exam: Dry, Intact, Normal Color, Warm Assessment and Plan (1) Syncope Assessment & Plan: etiology 2' to dehydration echo reviewed stable to dc home Status: Acute (2) CAD (coronary artery disease) Assessment & Plan: stable cont plavix Status: Acute (3) Dyslipidemia Assessment & Plan: statins - home dose of vytorin Status: Acute (4) HTN (hypertension) Assessment & Plan: cont home BP meds Status: Acute
--- NOTE | 2018-04-06 06:34 | CP.PCM.DIS ---
Provider - Provider Date of Admission: 04/03/18 16:58 Attending physician: Asif Esquivel MD Time Spent in preparation of Discharge (in minutes): 20 Diagnosis - Discharge Diagnosis (1) CAD (coronary artery disease) Status: Chronic (2) Dyslipidemia Status: Chronic (3) HTN (hypertension) Status: Chronic (4) Syncope Status: Acute Priority: High Hospital Course - Lab Results Lab Results: Most Recent Lab Values WBC 9.1 K/uL (4.8-10.8) 04/03/18 11:30 RBC 4.17 Mil/uL (3.80-5.20) 04/03/18 11:30 Hgb 12.9 g/dL (12.0-16.0) 04/03/18 11:30 Hct 37.7 % (34.0-47.0) 04/03/18 11:30 MCV 90.4 fl (81.0-99.0) 04/03/18 11:30 MCH 30.8 pg (27.0-31.0) 04/03/18 11:30 MCHC 34.1 g/dL (33.0-37.0) 04/03/18 11:30 RDW 12.8 % (11.5-14.5) 04/03/18 11:30 Plt Count 224 K/uL (130-400) 04/03/18 11:30 MPV 8.3 fl (7.2-11.7) 04/03/18 11:30 Neut % (Auto) 67.4 % (50.0-75.0) 04/03/18 11:30 Lymph % (Auto) 20.1 % (20.0-40.0) 04/03/18 11:30 [place] % (Auto) 7.9 % (0.0-10.0) 04/03/18 11:30 Eos % (Auto) 3.3 % (0.0-4.0) 04/03/18 11:30 Baso % (Auto) 1.3 % (0.0-2.0) 04/03/18 11:30 Neut # (Auto) 6.2 K/uL (1.8-7.0) 04/03/18 11:30 Lymph # (Auto) 1.8 K/uL (1.0-4.3) 04/03/18 11:30 [place] # (Auto) 0.7 K/uL (0.0-0.8) 04/03/18 11:30 Eos # (Auto) 0.3 K/uL (0.0-0.7) 04/03/18 11:30 Baso # (Auto) 0.1 K/uL (0.0-0.2) 04/03/18 11:30 PT 10.4 Seconds (9.8-13.1) 04/03/18 11:30 INR 0.9 (0.9-1.2) 04/03/18 11:30 APTT 43.2 Seconds (25.6-37.1) H 04/03/18 11:30 Sodium 141 mmol/l (132-148) 04/03/18 11:30 Potassium 4.3 MMOL/L (3.6-5.0) 04/03/18 11:30 Chloride 104 mmol/L (98-107) 04/03/18 11:30 Carbon Dioxide 24 mmol/L (22-30) 04/03/18 11:30 Anion Gap 17 (10-20) 04/03/18 11:30 BUN 19 mg/dl (7-17) H 04/03/18 11:30 Creatinine 0.7 mg/dl (0.7-1.2) 04/03/18 11:30 Est GFR ( Amer) > 60 04/03/18 11:30 Est GFR (Non-Af Amer) > 60 04/03/18 11:30 POC Glucose (mg/dL) 91 mg/dL (65-110) 04/05/18 15:46 Random Glucose 69 mg/dL (65-105) 04/03/18 11:30 Hemoglobin A1c 6.1 % (4.2-6.5) 04/04/18 13:00 Calcium 9.5 mg/dL (8.4-10.2) 04/03/18 11:30 Total Bilirubin 0.5 mg/dl (0.2-1.3) 04/03/18 11:30 AST 26 U/L (14-36) 04/03/18 11:30 ALT 24 U/L (9-52) 04/03/18 11:30 Alkaline Phosphatase 43 U/L (38-126) 04/03/18 11:30 Troponin I < 0.0120 ng/mL (0.00-0.120) 04/03/18 11:30 Total Protein 7.2 G/DL (6.3-8.2) 04/03/18 11:30 Albumin 4.3 g/dL (3.5-5.0) 04/03/18 11:30 Globulin 2.8 gm/dL (2.2-3.9) 04/03/18 11:30 Albumin/Globulin Ratio 1.5 (1.0-2.1) 04/03/18 11:30 Triglycerides 352 mg/DL (0-149) H D 04/04/18 12:55 Cholesterol 156 mg/dL (0-199) 04/04/18 12:55 LDL Cholesterol Direct 65 mg/dL (0-129) 04/04/18 12:55 HDL Cholesterol 41 MG/DL (30-70) 04/04/18 12:55 TSH 3rd Generation 1.63 mIU/ML (0.46-4.68) 04/04/18 12:55 - Hospital Course Hospital Course: 57 YO female with PMHx HTN, CAD (stent 2012) HLD and NIDDM is admitted for syncope. Cardiology and Neurology was consulted. Imaging and workup was negative for any acute pathologies. Syncope likely multifactoral, hypoglycemia and dehydration. BP and DM medications were optimized and new regimen was started. Pt cleared by cardiology and Neurology for d/c home. Out patient for follow up MRI brain, as per Neuro recs. Patient discharged home with follow up with PMD in 1 week. Discharge Exam - Head Exam Head Exam: ATRAUMATIC, NORMAL INSPECTION, NORMOCEPHALIC - Eye Exam Eye Exam: EOMI, Normal appearance - ENT Exam ENT Exam: Mucous Membranes Moist - Respiratory Exam Respiratory Exam: Clear to PA & Lateral. absent: Rales, Wheezes - Cardiovascular Exam Cardiovascular Exam: REGULAR RHYTHM, +S1, +S2 - GI/Abdominal Exam GI & Abdominal Exam: Normal Bowel Sounds, Soft. absent: Tenderness - Extremities Exam Extremities exam: normal inspection - Neurological Exam Neurological exam: Alert, Oriented x3 Discharge Plan - Discharge Medications Prescriptions: Canagliflozin [Invokana] 100 mg PO DAILY #30 tablet - Follow Up Plan Condition: STABLE Disposition: HOME/ ROUTINE Instructions: Syncope (Fainting) Additional Instructions: follow up with pmd in 1 week. pt may return to work on monday04/09/18 Referrals: Jose Jones MD [Staff Provider] - Asif Esquivel MD [Staff Provider] - John Burnham MD [Family Provider] -
== END 2018-04-05 19:35 | disposition home or self-care (01) ==
LOC: H.ER 10:13 → H.ERHOLD 16:58 → H.TEL 20:15
PROVIDERS: ADMIT Family Medicine; ATTEND Family Medicine
DX: R55 Syncope and collapse (principal); E86.0 Dehydration; E11.649 Type 2 diabetes mellitus with hypoglycemia without coma; I10 Essential (primary) hypertension; I25.10 Atherosclerotic heart disease of native coronary artery without angina pectoris; E78.5 Hyperlipidemia, unspecified; E78.00 Pure hypercholesterolemia, unspecified; K44.9 Diaphragmatic hernia without obstruction or gangrene; Z95.1 Presence of aortocoronary bypass graft; Z95.5 Presence of coronary angioplasty implant and graft; Z79.02 Long term (current) use of antithrombotics/antiplatelets; K29.70 Gastritis, unspecified, without bleeding; Z79.84 Long term (current) use of oral hypoglycemic drugs; Z79.899 Other long term (current) drug therapy; M25.562 Pain in left knee; Z88.6 Allergy status to analgesic agent; Z91.040 Latex allergy status; Z91.013 Allergy to seafood
CPT/HCPCS: 36415; 70450; 70496; 70498; 71046; 73560; 73562; 80053; 80061; 82948; 83036; 84443; 84484; 85025; 85610; 85730; 93005; 93306; 93880; 99285; G0378; Q9967